=== PATIENT | female | born 1990 | race Two or more races ===

== ENCOUNTER 2020-08-03 14:01 | Inpatient (IN) | payer BC, OTHER ==
[~2020-08-03] VITALS: Ht 157.5 cm; Wt 91.0 kg
--- NOTE | 2020-08-03 14:12 | NUR ---
bib ems from [facility]. pt presented to er there for chest pressure. cta and us performed. negative for pe, 2 mm stone in gallbladder with thickening of arzola. pt had negative rapid covid test while at facility.
[2020-08-03] MEDS ORDERED: SODIUM CHLORIDE 0.9% 1,000ML IVBOLUS ONE (14:30)
[2020-08-03] MEDS ORDERED: SODIUM CHLORIDE FLUSH 10ML SYR IVF ONE (14:30)
[2020-08-03 15:00] LABS: ALANINE AMINOTRANSFERASE 656 U/L (12-78); ALBUMIN 2.7 g/dL (3.4-5.0); ANION GAP 8 mmol/L (5-15); CALCIUM 8.5 mg/dL (8.5-10.1); CHLORIDE 116 mmol/L (98-107); CREATININE 0.75 mg/dL (0.55-1.02)
[2020-08-03 15:02] LABS: ALKALINE PHOSPHATASE 135 U/L (45-117); BILIRUBIN,TOTAL 0.3 mg/dL (0.2-1.0); TOTAL PROTEIN 6.6 g/dL (6.4-8.2)
[2020-08-03 15:04] LABS: BASOPHILS % (AUTO) 1 % (0-1); EOSINOPHILS % (AUTO) 0 % (1-7); LYMPHOCYTES % (AUTO) 14 % (22-44); MEAN CORPUSCULAR HEMOGLOBIN 30.2 pg (27.0-34.8); MEAN CORPUSCULAR HGB CONC 32.8 g/dL (32.4-35.8); MONOCYTES % (AUTO) 6 % (2-9); NEUTROPHILS % (AUTO) 79 % (42-75); PLATELET COUNT 224 x10^3/uL (130-400); RED BLOOD COUNT 4.52 x10^6/uL (3.82-5.3); RED CELL DISTRIBUTION WIDTH 14.6 % (9.6-15.2)
[2020-08-03 15:21] LABS: MD NO
--- NOTE | 2020-08-03 15:30 | NUR ---
CARDIOLOGY IN ROOM.
[2020-08-03] MEDS ORDERED: MORPHINE SULFATE 4 MG/ML, 1ML ONE ×2 (15:31→19:13)
[2020-08-03] MEDS ORDERED: BUPIVACAINE/PF 0.25% ONE (15:37)
--- NOTE | 2020-08-03 15:38 | NUR ---
ECHOCARDIOGRAM BEING PERFORMED NOW
[2020-08-03] MEDS ORDERED: MORPHINE SULFATE 4 MG/ML, 1ML IVPush PRN (16:00)
[2020-08-03] MEDS ORDERED: SODIUM CHLORIDE FLUSH 10ML SYR IVF PRN (16:00)
--- NOTE | 2020-08-03 16:20 | NUR ---
ADMITTING IN ROOM AT THIS TIME. MADE AWARE POC IS OR AT 5
[2020-08-03] MEDS ORDERED: MIDAZOLAM 1 MG/ML, 2ML ONE (16:24)
[2020-08-03] MEDS ORDERED: FENTANYL PF 100 MCG/2ML ONE ×2 (16:24→18:53)
[2020-08-03] MEDS: NS + 20MEQ KCL 1,000 ML IV SCH (16:34)
--- NOTE | 2020-08-03 16:42 | NUR ---
REPORT RECEIVED FROM TONEY LOPEZ. HE STATES HE GAVE REPORT TO OR AND THAT SHE IS SCHEDULED FOR CABRERA AT 1700.
[2020-08-03] MEDS ORDERED: ONDANSETRON 2MG/ML, 2ML IVPush PRN ×2 (17:00→18:30)
[2020-08-03] MEDS ORDERED: ONDANSETRON ODT 4 MG PO PRN (17:00)
[2020-08-03] MEDS ORDERED: morphine SULFATE 10 MG/ML, 1ML IVPush PRN (17:00)
[2020-08-03] MEDS ORDERED: KETOROLAC 30 MG/1 ML ONE (17:11)
[2020-08-03] MEDS ORDERED: SUGAMMADEX 200 MG/2 ML IVPush ONE (17:11)
[2020-08-03] MEDS ORDERED: ROCURONIUM 10 MG/ML,10ML ONE (17:11)
[2020-08-03] MEDS ORDERED: BUPIVACAINE/PF-EPI 0.5% 1:200K SQ ONE (17:23)
[2020-08-03] MEDS ORDERED: ONDANSETRON 2MG/ML, 2ML ONE (17:51)
[2020-08-03] MEDS ORDERED: GLYCOPYRROLATE 0.2MG/1ML, 5ML ONE (17:51)
[2020-08-03] MEDS ORDERED: NEOSTIGMINE 1 MG/ML, 10ML ONE (17:51)
[2020-08-03] MEDS ORDERED: SUCCINYLCHOLINE 20 MG/ML, 10ML ONE (17:51)
[2020-08-03] MEDS ORDERED: PROPOFOL 10 MG/ML, 20ML ONE (17:51)
[2020-08-03] MEDS ORDERED: CEFAZOLIN 1,000 MG ONE (17:51)
[2020-08-03] MEDS ORDERED: DEXAMETHASONE 4 MG/ML, 1ML ONE (17:51)
[2020-08-03] MEDS ORDERED: OXYcodone 5 MG/5 ML ORAL.SOL UDC ONE (18:20)
[2020-08-03] MEDS: LABETALOL 5MG/ML, 20ML IV PRN ×3 (18:27→19:00)
[2020-08-03] MEDS ORDERED: MEPERIDINE/PF 25MG/0.5ML IVPush PRN (18:30)
[2020-08-03] MEDS ORDERED: OXYcodone 5 MG/5 ML ORAL.SOL UDC PO PRN (18:30)
[2020-08-03] MEDS ORDERED: PROMETHAZINE 25 MG/ML, 1ML IVPush PRN (18:30)
[2020-08-03] MEDS ORDERED: FENTANYL PF 100 MCG/2ML IV PRN (18:30)
[2020-08-03] MEDS ORDERED: HYDROmorphone 1 MG/ML, 1ML INJ IVPush PRN (18:30)
[2020-08-03] MEDS ORDERED: ENALAPRILAT 1.25 MG/ML, 2ML ONE (19:27)
[2020-08-03] MEDS ORDERED: ENALAPRILAT 1.25 MG/ML, 2ML IV PRN (19:30)
[2020-08-03] MEDS ORDERED: ONDANSETRON 2MG/ML, 2ML IV PRN (21:30)
[2020-08-03] MEDS: LACTATED RINGERS 1,000 ML IV SCH (21:30)
[2020-08-03] MEDS ORDERED: morphine SULFATE 10 MG/ML, 1ML IV PRN (21:30)
[2020-08-03] MEDS ORDERED: KETOROLAC 30 MG/1 ML IV PRN (21:30)
[2020-08-04] VITALS: BP 135/84
[2020-08-04] MEDS: PIPERACILLIN/TAZO/PMX 3.375GM 50 ML IV SCH ×3 (00:09→15:45)
[2020-08-04 04:00] VITALS: BP 124/87
[2020-08-04 05:09] LABS: BASOPHILS % (AUTO) 0 % (0-1); EOSINOPHILS % (AUTO) 0 % (1-7); LYMPHOCYTES % (AUTO) 11 % (22-44); MEAN CORPUSCULAR HEMOGLOBIN 30.4 pg (27.0-34.8); MEAN CORPUSCULAR HGB CONC 32.6 g/dL (32.4-35.8); MEAN PLATELET VOLUME 10.2 fL (7.4-10.4); MONOCYTES % (AUTO) 4 % (2-9); NEUTROPHILS % (AUTO) 85 % (42-75); PLATELET COUNT 212 x10^3/uL (130-400); RED BLOOD COUNT 4.16 x10^6/uL (3.82-5.3); RED CELL DISTRIBUTION WIDTH 14.5 % (9.6-15.2)
[2020-08-04 05:13] LABS: ALANINE AMINOTRANSFERASE 584 U/L (12-78); ALBUMIN 2.4 g/dL (3.4-5.0); ANION GAP 12 mmol/L (5-15); CALCIUM 8.2 mg/dL (8.5-10.1); CHLORIDE 108 mmol/L (98-107); CREATININE 0.81 mg/dL (0.55-1.02)
[2020-08-04 05:15] LABS: ALKALINE PHOSPHATASE 114 U/L (45-117); BILIRUBIN,TOTAL 0.3 mg/dL (0.2-1.0)
[2020-08-04 05:39] LABS: MD NO
[2020-08-04] MEDS: NS + 20MEQ KCL 1,000 ML IV SCH ×2 (05:54→17:49)
[2020-08-04] MEDS: ENOXAPARIN 40 MG/0.4 ML SQ SCH (06:00)
[2020-08-04] MEDS: LACTATED RINGERS 1,000 ML IV SCH ×2 (07:55→17:43)
[2020-08-04 08:00] VITALS: BP 138/85
[2020-08-04] MEDS: HYDROcodone/APAP 5/325 TABLET PO PRN ×2 (09:07→15:49)
[2020-08-04 13:47] VITALS: BP 110/64
[2020-08-04 19:53] VITALS: BP 123/79
[2020-08-05] MEDS: PIPERACILLIN/TAZO/PMX 3.375GM 50 ML IV SCH ×3 (00:51→16:00)
[2020-08-05] MEDS: LACTATED RINGERS 1,000 ML IV SCH ×2 (01:59→13:30)
[2020-08-05 02:30] VITALS: BP 146/82
[2020-08-05] MEDS: HYDROcodone/APAP 5/325 TABLET PO PRN ×4 (04:28→18:29)
[2020-08-05 05:47] LABS: CALCIUM 8.2 mg/dL (8.5-10.1); CHLORIDE 109 mmol/L (98-107)
[2020-08-05 05:53] LABS: ALANINE AMINOTRANSFERASE 388 U/L (12-78); ALBUMIN 2.5 g/dL (3.4-5.0); ALKALINE PHOSPHATASE 100 U/L (45-117); ANION GAP 8 mmol/L (5-15); BILIRUBIN,TOTAL 0.5 mg/dL (0.2-1.0); CREATININE 0.99 mg/dL (0.55-1.02); TOTAL PROTEIN 5.9 g/dL (6.4-8.2)
[2020-08-05 05:55] LABS: BASOPHILS % (AUTO) 1 % (0-1); EOSINOPHILS % (AUTO) 1 % (1-7); LYMPHOCYTES % (AUTO) 34 % (22-44); MEAN CORPUSCULAR HEMOGLOBIN 30.6 pg (27.0-34.8); MEAN CORPUSCULAR HGB CONC 32.7 g/dL (32.4-35.8); MEAN PLATELET VOLUME 10.2 fL (7.4-10.4); MONOCYTES % (AUTO) 9 % (2-9); NEUTROPHILS % (AUTO) 55 % (42-75); PLATELET COUNT 189 x10^3/uL (130-400); RED BLOOD COUNT 3.96 x10^6/uL (3.82-5.3); RED CELL DISTRIBUTION WIDTH 14.5 % (9.6-15.2)
[2020-08-05] MEDS: ENOXAPARIN 40 MG/0.4 ML SQ SCH (06:03)
[2020-08-05 06:16] LABS: MD NO
[2020-08-05 06:49] VITALS: BP 142/84
[2020-08-05] MEDS: NS + 20MEQ KCL 1,000 ML IV SCH (08:34)
[2020-08-05] MEDS ORDERED: POTASSIUM CHLORIDE 20 MEQ TAB.ER.PRT PO ONE (10:30)
[2020-08-05 12:55] VITALS: BP 124/84
[2020-08-05 16:18] VITALS: BP 125/80
[2020-08-05] MEDS ORDERED: OXYC-302 PO (18:30)
== END 2020-08-05 18:43 | disposition home or self-care (01) | DRG 769 ==
LOC: ED 15:14 → EDIP 15:57 → 4NE 20:33
PROVIDERS: ADMIT Hospitalist; ATTEND Internal Medicine
PROC: 0FT44ZZ Resection of Gallbladder, Percutaneous Endoscopic Approach (ICD-10-PCS; principal; 2020-08-03 17:00)
DX: O99.63 Diseases of the digestive system complicating the puerperium (principal); K80.00 Calculus of gallbladder with acute cholecystitis without obstruction; O99.893 Other specified diseases and conditions complicating puerperium; R00.1 Bradycardia, unspecified; Z20.828 Contact with and (suspected) exposure to other viral communicable diseases; O90.89 Other complications of the puerperium, not elsewhere classified; E87.6 Hypokalemia; R74.01 Elevation of levels of liver transaminase levels
CPT/HCPCS: 36415; 80053; 83690; 85025; 87635; 88304; 93005; 93306; G0378; J0690; J1100; J1650; J1885; J2250; J2405; J2543; J2704; J2710; J3010; J3490; J0330; J2270; J7030